=== PATIENT | male | born 1995 | race Caucasian/White ===

== ENCOUNTER 2017-12-23 00:49 | Inpatient (IN) | payer OTHER ==
[~2017-12-23] VITALS: Ht 175.3 cm; Wt 82.9 kg
[2017-12-23 03:46] VITALS: BP 138/77; PULSE 65; RESP 20; TEMP 97.3; O2SAT 99
[2017-12-23] MEDS ORDERED: MAGNESIUM HYDROXIDE SUSP 30 ML CUP PO PRN (04:30)
[2017-12-23] MEDS ORDERED: ACETAMINOPHEN 325 MG TAB PO PRN (04:30)
[2017-12-23] MEDS ORDERED: ALUMINUM/MAGNESIUM/SIMETH 30 ML CUP PO PRN (04:30)
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
[2017-12-23] MEDS ORDERED: LORazepam 1 MG TAB PO PRN (12:45)
[2017-12-23] MEDS ORDERED: HALOPERIDOL LACTATE 5 MG/ML AMP IM PRN (12:45)
[2017-12-23] MEDS ORDERED: diphenhydrAMINE HCL 50 MG CAP PO PRN (12:45)
[2017-12-23] MEDS ORDERED: LORazepam 2 MG/ML VIAL IM PRN (12:45)
[2017-12-23] MEDS ORDERED: diphenhydrAMINE HCL 50 MG/ML VIAL IM PRN (12:45)
--- NOTE | 2017-12-23 14:21 | PD.CONS ---
HPI Service [facility] Hospitalists Consult Requested By Psychiatry Reason for Consult Testicular pain Primary Care Physician No Primary Care Physician Diagnoses: History of Present Illness Mr. Lang is a 22-year-old male with no significant medical history who was admitted to the psychiatric unit from [facility] under Cedeno act due to paranoia and psychotic episode. Hospitalist service was consulted for patient's complaint of testicular pain. I went to examine patient with presence of his RN. Patient denies any current pain or swelling in the testicular area. He denies any fever or chills. When asked to examine, patient reports that all his symptoms are resolved and does not wish to be examined. He denies any chest pain, shortness of breath, fever or chills. Denies any changes in bowel or bladder habits. Review of Systems Except as stated in HPI: all other systems reviewed are Neg Past Family Social History Allergies: Coded Allergies: No Known Allergies (Verified Allergy, Unknown, 12/23/17) Past Medical History No significant past medical history Past Surgical History No significant past surgical history Reported Medications Does not take any medication on a regular basis Family History No family history of early heart disease, cancer, diabetes. Social History Patient denies using tobacco or alcohol. He does use marijuana. Physical Exam Vital Signs Vital Signs Date Time Temp Pulse Resp B/P (MAP) Pulse Ox O2 Delivery O2 Flow Rate FiO2 12/23/17 03:46 97.3 65 20 138/77 (97) 99 Physical Exam GENERAL: This is a well-nourished, well-developed patient, in no apparent distress. SKIN: No rashes, ecchymoses or lesions. Warm and dry. HEAD: Atraumatic. Normocephalic. No temporal or scalp tenderness. EYES: Pupils equal round and reactive. No injection or drainage. ENT: Nose without bleeding, purulent drainage or septal hematoma. Airway patent. NECK: Trachea midline. No lymphadenopathy. Supple, nontender, no meningeal signs. CARDIOVASCULAR: Regular rate and rhythm without murmurs, gallops, or rubs. No JVD. RESPIRATORY: Clear to auscultation. Breath sounds equal bilaterally. No wheezes , rales, or rhonchi. GASTROINTESTINAL: Abdomen soft, non-tender, nondistended. No guarding. MUSCULOSKELETAL: Extremities without clubbing, cyanosis, or edema. NEUROLOGICAL: Awake and alert. Cranial nerves II through XII intact. No focal neurological deficits. Normal speech. Assessment and Plan Assessment and Plan Mr. Lang is a 22-year-old male with no significant past medical or surgical history who was admitted to psychiatric unit from [facility] under Cedeno act due to acute psychosis, paranoia. Hospitalist service was consulted for testicular pain. However during this interview, patient denies any pain in the testicular area. He denies any fever or chills. He also denies any dysuria, hematuria. -Brief psychotic disorder -Paranoia -Management per psychiatric. -Possible testicular pain -Patient denies any dysuria or hematuria. He denies any testicular pain at this point. -I offered to examine him and also obtain an Ultrasound study. Patient refuses as he does not have any symptoms. Full code. Ambulation. Thank you for the consult. We will sign off. If we can be of any help, please let us know. Sen Tobin DO Dec 23, 2017 14:21
[2017-12-23 18:01] VITALS: BP 137/71; PULSE 71; RESP 18; TEMP 98.8; O2SAT 100
--- NOTE | 2017-12-24 08:48 | EKG ---
Date Performed: 12/23/2017 Time Performed: 13:30:14 PTAGE: 22 years EKG: Sinus rhythm NORMAL ECG NO PREVIOUS TRACING DOCTOR: Chrissie Evans Interpretating Date/Time 12/24/2017 08:47:36
[2017-12-24 10:21] LABS: CHOLESTEROL 139 MG/DL (120-200); TRIGLYCERIDES 339 MG/DL (42-150)
[2017-12-24 10:23] LABS: CHOLESTEROL/ HDL RATIO 2.34 RATIO; HDL CHOLESTEROL 59.4 MG/DL (40.0-60.0); LDL CHOLESTEROL 12 MG/DL (0-99)
--- NOTE | 2017-12-24 13:27 | PD.PSY.CON ---
Provisional Diagnosis Admission Date Dec 23, 2017 at 03:25 Winona I. 1. Brief psychotic disorder 2. Cannabis use, rule out use disorder Winona II. Deferred History of Present Illness Service Psychiatry Consult Requested By psychiatry Reason for Consult Second opinion Primary Care Physician No Primary Care Physician HPI Mr. Lang is a 22-year-old male with no reported past psychiatric history who presents in transfer from [facility] under a Cedeno act. Documentation from outside hospital reviewed. Patient presented there complaining of testicular/groin pain and was placed under a Cedeno act after he reportedly articulated beliefs that people in the hospital were trying to kill him. Reviewing our electronic medical record, I see no previous psychiatric contact within our system.Patient seen and examined with nurse. Chart reviewed. Case discussed with nursing staff. On my examination today, the patient reports that he was Cedeno acted on 12/18 and received injections, possibly of psychotropic medications, at that time. He believes that these injections contained bugs which have infected his groin/testicles and resulted in pain. However, the patient himself admits that his groin pain pre-dated . When asked about his comments at [facility] yesterday, the patient replies "I said they were trying to kill me because I was mad about waiting. I thought they didn't care." Presently, the patient describes his mood as "complacent," and I can elicit no depressive or hypomanic/manic symptoms. He denies any hopelessness, worthlessness, guilt. Sleep is fair as is appetite. He denies any audiovisual hallucinations. I can elicit no other delusional material and in particular can elicit no feelings of thought manipulation or ideas of reference. The remainder of the psychiatric ROS is negative. No other physical complaints beside the groin/testicular pain. The patient is a 22 year old descending man, domiciled with his parents in [place], unemployed, without a previous psychiatric history, no previous suicidal attempts, no previous psychiatric hospitalizations, cannabis use disorder, no significant medical history, who was brought to the hospital on the Cedeno act from [facility] in [place] due to increased paranoia. On psychiatric evaluation patient is guarded, visibly paranoid, stating that he wants to be discharged because he needs to take a lot of water in order to clean his body. She says that he needs and IV fluids in order to clean his pains, and here he is not taking enough water. Another thing that he says is that the medications that are given here is killing his heart. The patient is goal-directed, visibly internally preoccupied, but no agitation or aggressive behavior observed or reported. Review of Systems Constitutional: DENIES: Diaphoretic episodes, Fatigue, Fever, Weight gain, Weight loss, Chills, Dizziness, Change in appetite, Night Sweats Endocrine: DENIES: Heat/cold intolerance, Polydipsia, Polyuria, Polyphagia Eyes: DENIES: Blurred vision, Diplopia, Eye inflammation, Eye pain, Vision loss , Photosensitivity, Double Vision Ears, nose, mouth, throat: DENIES: Tinnitus, Hearing loss, Vertigo, Nasal discharge, Oral lesions, Throat pain, Hoarseness, Ear Pain, Running Nose, Epistaxis, Sinus Pain, Toothache, Odynophagia Respiratory: DENIES: Apneas, Cough, Snoring, Wheezing, Hemoptysis, Sputum production, Shortness of breath Cardiovascular: DENIES: Chest pain, Palpitations, Syncope, Dyspnea on Exertion , PND, Lower Extremity Edema, Orthopnea, Claudication Gastrointestinal: DENIES: Abdominal pain, Black stools, Bloody stools, Constipation, Diarrhea, Nausea, Vomiting, Difficulty Swallowing, Anorexia Genitourinary: DENIES: Sexual dysfunction, Urinary frequency, Urinary incontinence, Urgency, Hematuria, Dysuria, Nocturia, Penile Discharge, Testicular Pain, Testicular Swelling Musculoskeletal: DENIES: Joint pain, Muscle aches, Stiffness, Joint Swelling, Back pain, Neck pain Integumentary: DENIES: Abnormal pigmentation, Nail changes, Pruritus, Rash Hematologic/lymphatic: DENIES: Bruising, Lymphadenopathy Immunologic/allergic: DENIES: Eczema, Urticaria Neurologic: DENIES: Abnormal gait, Headache, Localized weakness, Paresthesias, Seizures, Speech Problems, Tremor, Poor Balance Psychiatric: COMPLAINS OF: Confusion, Delusions Past Family Social History Coded Allergies: No Known Allergies (Verified Allergy, Unknown, 12/23/17) Current Medications Medications (Trade) Dose Ordered Sig/Melly Route Start Time Stop Time Status Last Admin (Tylenol) 650 mg Q4H PRN PO 12/23/17 04:30 (Milk Of Magnesia Liq) 30 ml DAILY PRN PO 12/23/17 04:30 (Mag-Al Plus Susp Liq) 30 ml Q6H PRN PO 12/23/17 04:30 (Haldol) 5 mg BID PO 12/23/17 21:00 Future Hold (Haldol Inj) 5 mg BID PRN IM 12/23/17 12:45 Future Hold (Ativan) 1 mg Q6H PRN PO 12/23/17 12:45 Future Hold (Ativan Inj) 1 mg Q6H PRN IM 12/23/17 12:45 Future Hold (Benadryl) 50 mg Q6H PRN PO 12/23/17 12:45 Future Hold (Benadryl Inj) 50 mg Q6H PRN IM 12/23/17 12:45 Future Hold Family Psych History No family psychiatric history Social History Patient was born and raised in [place], he lives in [place] with his parents, unemployed, single Patient's Strengths (min. 2) Supportive mother. Verbally fluent. Physical Exam Vital Signs Vital Signs Date Time Temp Pulse Resp B/P (MAP) Pulse Ox O2 Delivery O2 Flow Rate FiO2 12/23/17 18:01 98.8 71 18 137/71 (93) 100 Lab Results Test 12/24/17 09:15 12/24/17 09:25 Erythrocyte Sedimentation Rate 2 mm/hr Total Creatine Kinase 123 U/L Triglycerides Level 339 MG/DL Cholesterol Level 139 MG/DL LDL Cholesterol 12 MG/DL HDL Cholesterol 59.4 MG/DL Cholesterol/HDL Ratio 2.34 RATIO Vitamin B12 Level 1296 PG/ML Thyroid Stimulating Hormone 3rd Gen 0.438 uIU/ML Mental Status Examination Appearance: Appropriate Consciousness: Alert Orientation: x4 Motor Activity: Normal gait Speech: Unremarkable Language: Adequate Fund of Knowledge: Adequate Attention and Concentration: Adequate Memory: Unremarkable Mood: Other ("complacent") Affect: Anxious Thought Process & Associations: Linear (within delusional themes) Thought Content: Delusional Hallucination Type: None Delusion Type: Paranoid, Somatic Suicidal Ideation: No (unreliable to contract for safety) Suicidal Plan: No Suicidal Intention: No Homicidal Ideation: No (unreliable to contract for safety) Homicidal Plan: No Homicidal Intention: No Insight: Poor Judgment: Poor Assessment & Plan Problem List: (1) Brief psychotic disorder ICD Codes: F23 - Brief psychotic disorder Assessment & Plan: I have seen and examined this patient, reviewed the documentation, discussed the case with staff in the unit, I agree and concur with Dr. Nixon assessment and plan. (2) Use of cannabis ICD Codes: F12.90 - Cannabis use, unspecified, uncomplicated Assessment & Plan Estimated LOS: days Request HC Surrog/Guard Advoc?: Yes Chase Arshad MD Dec 24, 2017 13:27
[2017-12-24 14:56] LABS: HEMOGLOBIN A1C 5.2 % (4.3-6.0)
--- NOTE | 2017-12-24 15:24 | HHI.PYPN ---
Subjective Chief Complaint: Psychosis Remarks Reviewed electronic medical record, labs and discuss case with staff. Staff reports patient has been pacing the unit and complaining of "vague chest pains" . Follow-up was conducted in patient's room with nurse present. Patient still complains of somewhat somatic chest pain. Offered a GI cocktail which patient refuses. He also refuses to take any of the as needed medications ordered for anxiety. Reports that he had a fairly decent night's sleep and that his appetite has been good. He denies having suicidal or homicidal ideation, auditory or visual hallucinations. However, he still exhibits signs of internal stimulation. Patient's mood is euthymic although, he is fixated on discharge. Mental Status Examination Appearance: Appropriate Consciousness: Alert Orientation: x4 Motor Activity: Normal gait Speech: Unremarkable Language: Adequate Fund of Knowledge: Adequate Attention and Concentration: Adequate Memory: Unremarkable Mood: Appropriate Affect: Anxious Thought Process & Associations: Intact, Linear Thought Content: Delusional Hallucination Type: None Delusion Type: Paranoid, Somatic Suicidal Ideation: No (unreliable to contract for safety) Suicidal Plan: No Suicidal Intention: No Homicidal Ideation: No (unreliable to contract for safety) Homicidal Plan: No Homicidal Intention: No Insight: Poor Judgment: Poor Results Labs Test 12/24/17 09:15 12/24/17 09:25 Erythrocyte Sedimentation Rate 2 mm/hr Total Creatine Kinase 123 U/L Triglycerides Level 339 MG/DL Cholesterol Level 139 MG/DL LDL Cholesterol 12 MG/DL HDL Cholesterol 59.4 MG/DL Cholesterol/HDL Ratio 2.34 RATIO Vitamin B12 Level 1296 PG/ML Thyroid Stimulating Hormone 3rd Gen 0.438 uIU/ML HIV (1&2) Antibody NEGATIVE Vitals/IOs Vital Signs Date Time Temp Pulse Resp B/P (MAP) Pulse Ox O2 Delivery O2 Flow Rate FiO2 12/23/17 18:01 98.8 71 18 137/71 (93) 100 Assessment & Plan Problem List: (1) Brief psychotic disorder ICD Codes: F23 - Brief psychotic disorder (2) Use of cannabis ICD Codes: F12.90 - Cannabis use, unspecified, uncomplicated Assessment & Plan Estimated LOS: Continue with treatment plan until psychiatrically stabilized. Justification for Cont. Inpt. Moving patient to a lower level of care would likely result in decompensation. Request HC Surrog/Guard Advoc?: Yes Michela Talbot Dec 24, 2017 15:24
[2017-12-24 17:36] VITALS: BP 132/72; PULSE 79; RESP 18; TEMP 98.5; O2SAT 97
[2017-12-24] MEDS: HALOPERIDOL 5 MG TAB PO SCH (20:21)
[2017-12-25 05:52] VITALS: BP 126/60; PULSE 61; RESP 18; TEMP 97.2; O2SAT 99
[2017-12-25] MEDS: HALOPERIDOL 5 MG TAB PO SCH ×2 (09:22→20:45)
--- NOTE | 2017-12-25 15:08 | HHI.PYPN ---
Subjective Chief Complaint: Psychosis Remarks Patient was seen and case discussed with nursing. Patient is pleasant and cooperative with exam. Having a productive visit with his family members. He denies a history of psychosis, bizarre behavior thought process. No bizarre behavior on the unit. Bright and cheerful throughout. No delusions elicited. Denies auditory visual hallucinations. Tolerating medications well Mental Status Examination Appearance: Appropriate Consciousness: Alert Orientation: x4 Motor Activity: Normal gait Speech: Unremarkable Language: Adequate Fund of Knowledge: Adequate Attention and Concentration: Adequate Memory: Unremarkable Mood: Appropriate Affect: Appropriate Thought Process & Associations: Intact, Linear Thought Content: Delusional Hallucination Type: None Delusion Type: None Suicidal Ideation: No (unreliable to contract for safety) Suicidal Plan: No Suicidal Intention: No Homicidal Ideation: No (unreliable to contract for safety) Homicidal Plan: No Homicidal Intention: No Insight: Poor Judgment: Poor Results Vitals/IOs Vital Signs Date Time Temp Pulse Resp B/P (MAP) Pulse Ox O2 Delivery O2 Flow Rate FiO2 12/25/17 05:52 97.2 61 18 126/60 (82) 99 Assessment & Plan Problem List: (1) Brief psychotic disorder ICD Codes: F23 - Brief psychotic disorder (2) Use of cannabis ICD Codes: F12.90 - Cannabis use, unspecified, uncomplicated Assessment & Plan Continue current treatment plan Justification for Cont. Inpt. Patient will decompensate in a less restrictive setting Request HC Surrog/Guard Advoc?: Yes Andrei Cuellar DO Dec 25, 2017 15:08
[2017-12-25 18:16] VITALS: BP 129/71; PULSE 67; RESP 17; TEMP 98.6; O2SAT 99
[2017-12-26 06:13] VITALS: BP 121/56; PULSE 56; RESP 17; TEMP 97.8; O2SAT 99
[2017-12-26] MEDS: HALOPERIDOL 5 MG TAB PO SCH ×2 (09:00→20:30)
--- NOTE | 2017-12-26 12:36 | HHI.PYPN ---
Subjective Chief Complaint: Psychosis Remarks Patient was seen and case discussed with nursing. Patient has been refusing his Haldol today. There is not enough reason to administer IM injections at this time. Patient continues to deny psychotic symptoms and nursing has not noted any bizarre behavior thought processes. Patient is logical and goal oriented. Denies suicidal or homicidal ideation intent or plan Mental Status Examination Appearance: Appropriate Consciousness: Alert Orientation: x4 Motor Activity: Normal gait Speech: Unremarkable Language: Adequate Fund of Knowledge: Adequate Attention and Concentration: Adequate Memory: Unremarkable Mood: Appropriate Affect: Appropriate Thought Process & Associations: Intact, Linear Thought Content: Delusional Hallucination Type: None Delusion Type: None Suicidal Ideation: No (unreliable to contract for safety) Suicidal Plan: No Suicidal Intention: No Homicidal Ideation: No (unreliable to contract for safety) Homicidal Plan: No Homicidal Intention: No Insight: Poor Judgment: Poor Results Vitals/IOs Vital Signs Date Time Temp Pulse Resp B/P (MAP) Pulse Ox O2 Delivery O2 Flow Rate FiO2 12/26/17 06:13 97.8 56 17 121/56 (77) 99 Assessment & Plan Problem List: (1) Brief psychotic disorder ICD Codes: F23 - Brief psychotic disorder (2) Use of cannabis ICD Codes: F12.90 - Cannabis use, unspecified, uncomplicated Assessment & Plan Continue current treatment plan Justification for Cont. Inpt. Patient would decompensate in a less restrictive setting Request HC Surrog/Guard Advoc?: Yes Andrei Cuellar DO Dec 26, 2017 12:36
[2017-12-26 18:03] VITALS: BP 132/63; PULSE 63; RESP 17; TEMP 99.1; O2SAT 100
[2017-12-27 06:22] VITALS: BP 128/61; PULSE 53; RESP 18; TEMP 98.8; O2SAT 99
[2017-12-27] MEDS: HALOPERIDOL 5 MG TAB PO SCH (09:00)
[2017-12-27 10:44] LABS: ANA SCREEN NEG (NEG)
--- NOTE | 2017-12-27 11:48 | HHI.DS ---
Psychiatry Discharge Summary Inpatient Psychiatric care?: Yes Advance Directive: No Reason Not Provided: does not have Mental Health AdvanceDirective: No Health Care Proxy: No Admission Admission Date Dec 23, 2017 at 03:25 Admission Diagnosis: (1) Brief psychotic disorder ICD Code: F23 - Brief psychotic disorder (2) Use of cannabis ICD Code: F12.90 - Cannabis use, unspecified, uncomplicated Brief History Mr. Lang is a 22-year-old male with no reported past psychiatric history who presents in transfer from [facility] under a C[facility]eno act. Documentation from outside hospital reviewed. Patient presented there complaining of testicular/groin pain and was placed under a Cedeno act after he reportedly articulated beliefs that people in the hospital were trying to kill him. Reviewing our electronic medical record, I see no previous psychiatric contact within our system.Patient seen and examined with nurse. Chart reviewed. Case discussed with nursing staff. On my examination today, the patient reports that he was Cedeno acted on 12/18 and received injections, possibly of psychotropic medications, at that time. He believes that these injections contained bugs which have infected his groin/testicles and resulted in pain. However, the patient himself admits that his groin pain pre-dated . When asked about his comments at [facility] yesterday, the patient replies "I said they were trying to kill me because I was mad about waiting. I thought they didn't care." Presently, the patient describes his mood as "complacent," and I can elicit no depressive or hypomanic/manic symptoms. He denies any hopelessness, worthlessness, guilt. Sleep is fair as is appetite. He denies any audiovisual hallucinations. I can elicit no other delusional material and in particular can elicit no feelings of thought manipulation or ideas of reference. The remainder of the psychiatric ROS is negative. No other physical complaints beside the groin/testicular pain. Tobacco Use In Past 30 Days: No Tobacco Past 30 Days Alcohol Use: Never Hospital Course Patient was admitted to a locked, inpatient psychiatric unit. A general medical consultation was obtained. Appropriate precautions were in place throughout patient's hospital stay. Patient was seen and examined on the unit by psychiatry and also visited by counselor. Patient declined psychotropic medications. There was no evidence of any suicidality or homicidality on the inpatient unit. Patient remained in behavioral control. Collateral was obtained from the patient's mother. On the day of discharge: Patient seen and examined with nurse. Chart reviewed. Case discussed with nursing staff. No behavioral issues overnight. Patient has been refusing his Haldol. Case discussed with counselor. On my examination today, the patient is requesting discharge from the inpatient psychiatric unit today. He denies any suicidal or homicidal ideation, intent or plan on direct questioning and contracts for safety. I can elicit no depressive or hypomanic/manic symptoms presently. He denies any audiovisual hallucinations. I can elicit no delusional material, and in particular I can elicit no paranoia, no ideas of reference. The patient specifically denies the somatic delusions that he had at admission. There is no evidence of ongoing impairment in reality construction. He is not interested in psychotropic medication management. He is agreeable to outpatient psychiatric follow-up. He has no physical complaints. Obtained collateral information from the patient's mother Ana on the day of discharge. She is comfortable with the patient being discharged home today. I have recommended that she secure the home out of an abundance of caution a means of harm to self/others and also recommended that she have the patient brought back to the emergency room, under Cedeno act if necessary, should his condition deteriorate on an outpatient basis. Suicide and violence risk assessment on day of discharge both suggest lower imminent risk, and the patient 's level of function is adequate for outpatient care. The patient no longer meets criteria for involuntary psychiatric hospitalization. He is requesting discharge from the inpatient psychiatric unit today, and I have no basis to retain him over his objection at this point. Patient will be discharged home with psychiatric follow-up as arranged by counselor. Patient is also follow-up with primary care. I counseled the patient to abstain from substances of abuse and recommended chemical dependency evaluation and treatment on an outpatient basis. I have counseled the patient regarding warning signs for need to return to the psychiatric emergency room as part of a general safety plan. I have written no prescriptions on discharge. Results Blood Pressure 128 / 61 Vital Signs Date Time Temp Pulse Resp B/P (MAP) Pulse Ox O2 Delivery O2 Flow Rate FiO2 12/27/17 06:22 98.8 53 18 128/61 (83) 99 Laboratory Results Test 12/24/17 09:15 Cholesterol Level 139 MG/DL (120-200) HDL Cholesterol 59.4 MG/DL (40.0-60.0) Hemoglobin A1c 5.2 % (4.3-6.0) LDL Cholesterol 12 MG/DL (0-99) Triglycerides Level 339 MG/DL (42-150) Summary of Procedures None done Imaging None done Pending results at discharge: No Medications # of Antipsychotic meds at D/C: 0 Approp Antipsych med options 1 - Minimum of three failed multiple trials of monotherapy. 2 - Documented plan to taper to monotherapy due to previous use of multiple meds OR cross-taper in progress at D/C. 3 - Documentation of augmentation of Clozapine. 4 - Justification other than those listed in allowable values 1-3, document here : Discharge Discharge Date: Dec 27, 2017 Discharge Diagnosis: (1) Brief psychotic disorder Diagnosis: Principal (resolved) ICD Code: F23 - Brief psychotic disorder (2) Use of cannabis Diagnosis: Secondary (counseled to quit) ICD Code: F12.90 - Cannabis use, unspecified, uncomplicated Pt Condition on Discharge: Stable Discharge Disposition: Discharge Home Discharge Instructions Diet Instructions: As Tolerated, No Restrictions Activities you can perform: Weight Bearing as [place] Scheduled Appointment: as per counselor's notes Discharge Time > 30 minutes Mental Status Examination Appearance: Appropriate, Well dressed/well groomed Consciousness: Alert Orientation: x4 Motor Activity: Normal gait, Other (no motor abnormalities noted) Speech: Unremarkable Language: Adequate Fund of Knowledge: Adequate Attention and Concentration: Adequate Memory: Unremarkable Mood: Appropriate Affect: Appropriate Thought Process & Associations: Intact, Logical, Goal directed, Linear Thought Content: Appropriate Hallucination Type: None Delusion Type: None Suicidal Ideation: No Suicidal Plan: No Suicidal Intention: No Homicidal Ideation: No Homicidal Plan: No Homicidal Intention: No Insight: Fair Judgment: Adequate (fair) Discharge/Advance Care Plan Health Problems: (1) Brief psychotic disorder (2) Use of cannabis Goals to promote your health * To prevent worsening of your condition and complications * To maintain your health at the optimal level Directions to meet your goals Take your medications as prescribed Follow your dietary instruction Follow activity as directed Keep your appointments as scheduled Take your immunizations and boosters as scheduled If your symptoms worsen call your PCP, if no PCP go to Urgent Care Center or Emergency Room For 24 questions related to your inpatient stay or results of tests pending at discharge, please contact Dr. Donny Nixon at Smoking is Dangerous to Your Health. Avoid second hand smoking Donny Nixon MD Dec 27, 2017 11:48
== END 2017-12-27 16:15 | disposition home or self-care (01) | DRG 885 ==
LOC: H270 03:25
PROVIDERS: ADMIT Psychiatry & Neurology Psychiatry; ATTEND Psychiatry & Neurology Psychiatry
DX: F23 Brief psychotic disorder (principal); F12.90 Cannabis use, unspecified, uncomplicated; R07.9 Chest pain, unspecified
CPT/HCPCS: 80061; 82550; 82607; 83036; 84443; 85652; 86038; 86592; 86703; 93005